=== PATIENT | male | born 1945 | race Caucasian/White ===

== ENCOUNTER → 2016-12-14 | Outpatient (REF) | payer MEDICARE ==
[~2016-12-14] MED LIST: ADV250INH INH; ALBU17IN INH; ASPI1TAB PO; ATOR40TA PO; LEVO25TA5 PO; LOVE0.01 SC; METF-699 PO; NITR4TASL SL; POTA1TAB14 PO; SERT50TA PO; SPIR25TA2 PO; TORS10TA3 PO; TORS20TA2 PO; VICT18IN SC; VITMTA PO; WARF-20 PO; WARF-22 PO; ZYLO300T4 PO
[2016-12-14 19:15] LABS: FOLATE > 24.0 NG/ML; VITAMIN B12 LEVEL 452 PG/ML
[2016-12-14 19:16] LABS: FERRITIN 37 NG/ML (26-388); PERCENT SATURATION 13.6 % (19.7-37.4); TOTAL IRON BINDING CAPACITY 433 UG/DL (250-450)
== END ==
LOC: M LAB REF 17:11
PROVIDERS: ATTEND Family Medicine
DX: D64.9 Anemia, unspecified (principal)

== ENCOUNTER 2017-03-02 14:59 | Emergency (ER) | payer MEDICARE ==
[~2017-03-02] VITALS: Ht 167.6 cm; Wt 112.7 kg
[~2017-03-02 14:59] MED LIST changes: -ATOR40TA PO; +ATOR40TA75 PO
[2017-03-02] MEDS ORDERED: TORS20TA2 PO (15:24)
[2017-03-02] MEDS ORDERED: COUM7.5T PO (15:24)
[2017-03-02] MEDS ORDERED: K-TA10TA2 PO (15:24)
[2017-03-02] MEDS ORDERED: COUM10TA PO (15:24)
[2017-03-02] MEDS ORDERED: LANTINJ4 SC ×2 (15:25)
[2017-03-02 16:23] LABS: INR 1.94
--- NOTE | 2017-03-02 16:36 | REP ---
CT HEAD WITHOUT CONTRAST: HISTORY: Head injury. COMPARISON: 02/11/2013. Areas of decreased attenuation are present in the periventricular and subcortical white matter. This represents small vessel ischemic disease. There is no intraparenchymal hemorrhage, mass, or midline shift. The ventricular system and cortical sulci as well as subarachnoid space and the posterior fossa are dilated consistent with moderate volume loss. There is no extracerebral collection. There is no fracture. The visualized sinuses are clear. IMPRESSION: 1. Small vessel ischemic disease. 2. Moderate volume loss. Signed by Yariel Pritchett MD 03/02/2017 04:49 P
[2017-03-02 17:51] VITALS: BP 130/61
== END 2017-03-02 17:58 | disposition home or self-care (01) ==
LOC: M ED 14:59
DX: S00.03XA Contusion of scalp, initial encounter (principal); E11.9 Type 2 diabetes mellitus without complications; W06.XXXA Fall from bed, initial encounter; Y92.013 Bedroom of single-family (private) house as the place of occurrence of the external cause; Y99.9 Unspecified external cause status; Y93.9 Activity, unspecified; Z79.01 Long term (current) use of anticoagulants; Z88.0 Allergy status to penicillin; Z88.1 Allergy status to other antibiotic agents; Z79.82 Long term (current) use of aspirin; Z79.899 Other long term (current) drug therapy; Z79.4 Long term (current) use of insulin

== ENCOUNTER → 2017-04-04 | Outpatient (REF) | payer MEDICARE ==
[~2017-04-04] MED LIST changes: +COUM10TA PO; +COUM7.5T PO; +K-TA10TA2 PO; +LANTINJ4 SC
[2017-04-04 14:12] LABS: INR 3.05
== END ==
LOC: M LAB REF 13:20
PROVIDERS: ATTEND Family Medicine
DX: I35.8 Other nonrheumatic aortic valve disorders (principal); D64.9 Anemia, unspecified